=== PATIENT | female | born 1950 | race Caucasian/White ===

== ENCOUNTER 2023-09-23 08:55 | Outpatient (CLI) | payer MEDICARE, SELFPAY | END 2023-09-23 08:56 | disposition home or self-care (01) | LOC: NFLDREF 09-24 10:48 | PROVIDERS: PCP Family Medicine; Referring Provider Family Medicine; Visit Provider Family Medicine | DX: Z00.00 Encounter for general adult medical examination without abnormal findings (principal); R03.0 Elevated blood-pressure reading, without diagnosis of hypertension; Z13.6 Encounter for screening for cardiovascular disorders | CPT/HCPCS: 80048; 80061 ==

== ENCOUNTER 2023-12-18 14:37 | Outpatient (CLI) | payer MEDICARE, SELFPAY ==
--- NOTE | 2023-12-18 15:00 | MM_ITS ---
Patient: MELLISSA GIL Facility:?[facility] R[facility] Patient ID:?[id number] Site Patient [id number] Site :?[id number] Study:?XRay-Breast Bilateral 3D W/CAD-12/18/2023 1:00:44 PM Ordering Physician:SEB Final Report: BILATERAL SCREENING MAMMOGRAM WITH COMPUTER-AIDED DETECTION AND TOMOSYNTHESIS TECHNIQUE: CC and MLO views were obtained. These mammographic images have been obtained using full-field digital technique. These mammographic images were interpreted with the benefit of computer-aided detection. Breast Tomosynthesis was used in this interpretation. COMPARISON FILM: 04/06/20, 02/18/19, 02/06/18, 02/05/17, 01/28/17, 02/18/15. FINDINGS: There are scattered areas of fibroglandular density. IMPRESSION: There is no radiographic evidence for malignancy. ASSESSMENT: BI-RADS Category 2: Benign RECOMMENDATION: Routine screening mammogram in 1 year. A lay language report of this examination will be provided to the patient. Jovan Mayer M.D. Diagnostic Radiologist [email or web address] DSM/sp R& Transcribed: 3:13 p.m. SP/Dictated by: Jovan Mayer MD @ 12/20/2023 1:04:00 PM Signed by:?Jovan Mayer MD @12/20/2023 3:54:34 PM (Electronic Signature)
--- NOTE | 2023-12-18 15:30 | XR_ITS ---
Patient: MELLISSA GIL Facility:?[facility] Patient ID:?[id number] Site Patient ID:?[id number] Site :?[id number] Study:?DEXA-Bone Density SPINE/BOTH HIPS-12/18/2023 3:39:53 PM Ordering Physician:SEB Final Report: DXA BONE MINERAL DENSITY STUDY Current height (in): 63.0. Weight (lb): 135.0. Menopause age: 50. Ethnicity: White. Reason for exam: Osteopenia, asymptomatic menopausal state. 1. Have you had a previous hip or vertebral fracture? No. 2. Have you had any fractures during your adult life which did not result from significant trauma (e.g., auto accident)? No. 3. Did either of your parents have a hip fracture? No. 4. Do you smoke? No. 5. Have you ever taken Glucocorticoids? No. 6. Do you have rheumatoid arthritis? No. 7. Do you have secondary osteoporosis? No. 8. Do you drink 3 or more alcoholic drinks per day? No. 9. Are you being treated for osteoporosis? No. 10. Have you ever taken any of the following medications: Actonel, Evista, Fosamax, Miacalcin, Reclast, Boniva, Forteo, HRT (i.e. estrogen/hormone therapy), Protelos, Prolia, Vitamin D, Calcium, other ? please specify. ANSWER: Yes, vitamin D, calcium. 11. Do you have any of the following medical conditions: Anorexia or bulimia, asthma or emphysema, end stage renal disease, hyperparathyroidism, any seizure disorders, cancer, inflammatory bowel diseases, hysterectomy, other ? please specify. ANSWER: Yes, asthma or emphysema. 12. What was your maximum height (inches)? 63.5. 13. Do you perform weight bearing exercise regularly? Yes. 14. Do you regularly consume dairy products? Yes. 15. Do you drink caffeinated beverages? Yes. 16. At what age did your period start? 11. 17. Are you premenopausal? No. 18. How many full term pregnancies have you had? 2. 19. Have you ever missed your period for more than 6 months in a row (not including or menopause)? No. TECHNIQUE: Bone mineral density study was performed using the AutoAlert. FINDINGS: The results of the study expressed as bone mineral density (BMD) are as follows: Lumbar spine L1 to L4: BMD: 0.904 g/cm2. T-score: -1.3. Z-score: 1.1. Neck Left: BMD: 0.546 g/cm2. T-score: -2.7. Z-score: -0.6 Right: BMD: 0.538 g/cm2. T-score: -2.8. Z-score: -0.7 Total Left: BMD: 0.709 g/cm2. T-score: -1.9. Z-score: -0.1 Right: BMD: 0.671 g/cm2. T-score: -2.2. Z-score: -0.4 IMPRESSION: Osteoporosis. COMPARISON: Compared with scan of 07/27/2021, the bone mineral density has increased by 1.9 percent at the spine and increased by 1.4 percent at the hip. Marlin Morrow M.D. Body/Diagnostic Radiologist [email or web address] JANICE/sindy: D& Transcribed: 11:27 am DW/Dictated by: Marlin Morrow MD @ 12/19/2023 2:36:00 AM Signed by:Yisel Morrow MD @12/19/2023 8:41:48 PM (Electronic Signature)
== END 2023-12-18 14:38 | disposition home or self-care (01) ==
PROVIDERS: PCP Family Medicine; Visit Provider Family Medicine
DX: Z12.31 Encounter for screening mammogram for malignant neoplasm of breast (principal); M85.89 Other specified disorders of bone density and structure, multiple sites; Z78.0 Asymptomatic menopausal state; M81.0 Age-related osteoporosis without current pathological fracture
CPT/HCPCS: 77063; 77067; 77080

== ENCOUNTER 2024-11-04 08:34 | Outpatient (CLI) | payer MEDICARE, SELFPAY | END 2024-11-04 08:35 | disposition home or self-care (01) | LOC: NFLDREF 11-12 23:21 | PROVIDERS: PCP Family Medicine; Referring Provider Family Medicine; Visit Provider Family Medicine | DX: R13.10 Dysphagia, unspecified (principal); E78.00 Pure hypercholesterolemia, unspecified; Z13.228 Encounter for screening for other metabolic disorders | CPT/HCPCS: 80053; 80061 ==

== ENCOUNTER 2025-01-26 10:03 | Outpatient (CLI) | payer MEDICARE, SELFPAY ==
--- NOTE | 2025-01-26 10:15 | CRLHL7_ITS ---
For Patients: As a result of the Century Cures Act, medical imaging exams and procedure reports are released immediately into your electronic medical record. You may view this report before your referring provider. If you have questions, please contact your health care provider. INDICATION: BILATERAL SCREENING MAMMOGRAM, ASYMPTOMATIC 77f COMPARISON: 12/18/23, 04/11/21, 04/06/20 TECHNIQUE: CC and MLO views were obtained. These mammographic images have been obtained using full-field digital technique. These mammographic images were interpreted with the benefit of computer aided detection and tomosynthesis. BREAST COMPOSITION: There are scattered areas of fibroglandular density. FINDINGS: No suspicious findings. ASSESSMENT: BI-RADS 2 Benign RECOMMENDATION: Annual screening mammogram. A lay language report of this examination will be provided to the patient. Dictated by: Jovan Mayer MD @ 02/03/2025 12:41:42 (Electronically Signed)
== END 2025-01-26 10:04 | disposition home or self-care (01) ==
LOC: MAMMO 10:03
PROVIDERS: PCP Family Medicine; Visit Provider Family Medicine
DX: Z12.31 Encounter for screening mammogram for malignant neoplasm of breast (principal)
CPT/HCPCS: 77063; 77067

== ENCOUNTER 2025-02-24 14:22 | Outpatient (CLI) | payer MEDICARE, SELFPAY | END 2025-02-24 14:23 | disposition home or self-care (01) | LOC: NFLDREF 03-03 00:54 | PROVIDERS: PCP Family Medicine; Referring Provider Family Medicine; Visit Provider Family Medicine | DX: E78.00 Pure hypercholesterolemia, unspecified (principal) | CPT/HCPCS: 80061; 80076 ==

== ENCOUNTER 2025-06-22 15:47 | Outpatient (CLI) | payer MEDICARE, SELFPAY | END 2025-06-22 15:48 | disposition home or self-care (01) | PROVIDERS: PCP Family Medicine; Visit Provider Family Medicine | DX: E01.0 Iodine-deficiency related diffuse (endemic) goiter (principal); Z13.21 Encounter for screening for nutritional disorder | CPT/HCPCS: 82607; 84439; 84443 ==

== ENCOUNTER 2025-06-28 14:54 | Outpatient (CLI) | payer MEDICARE, SELFPAY ==
--- NOTE | 2025-06-28 15:00 | CRLHL7_ITS ---
For Patients: As a result of the Cures Act, medical imaging exams and procedure reports are released immediately into your electronic medical record. You may view this report before your referring provider. If you have questions, please contact your health care provider. INDICATION: iodine deficiency related diffuse (endemic) goiter, thyromegaly COMPARISON: none TECHNIQUE: Lynn scale and color Doppler images were acquired of the thyroid gland. FINDINGS: Isthmus measures 4 millimeters. Mostly solid nodule left thyroid lobe measures 2.5 x 2.2 x 2.1 cm, TR 4. Solid and cystic nodule left thyroid lobe measures 3.4 x 1.8 x 3.0 cm, TR 3. Solid and cystic nodule right thyroid lobe measures 1.9 x 1.0 x 1.4 cm, TR 3. Mostly cystic nodule right thyroid lobe measures 2.1 x 1.3 x 1.7 cm, TR 2. Additional mostly cystic nodule right thyroid lobe measures 1.0 x 1.0 x 1.3 cm, TR 2. Solid and cystic nodule right thyroid lobe measures 8 x 6 x 9 millimeters, TR 3. The right lobe measures 5.7 x 2.0 x 2.1 cm and the left lobe measures 5.8 x 2.7 x 2.8 cm in size. The color Doppler images demonstrate normal vascularity. There is no evidence of cervical lymphadenopathy or parathyroid mass. IMPRESSION: 3.4 cm TR 3 nodule left thyroid lobe. 2.5 cm TR 4 nodule left thyroid lobe. FNA recommended. Right-sided nodules can be followed in 1 year. Dictated by Jovan Mayer MD @ 06/29/2025 7:51:27 AM (Electronically Signed)
== END 2025-06-28 14:55 | disposition home or self-care (01) ==
LOC: US 14:55
PROVIDERS: PCP Family Medicine; Visit Provider Family Medicine
DX: E01.0 Iodine-deficiency related diffuse (endemic) goiter (principal)
CPT/HCPCS: 76536

== ENCOUNTER 2025-07-01 08:07 | Outpatient (CLI) | payer MEDICARE, SELFPAY ==
--- NOTE | 2025-07-01 08:15 | CRLHL7_ITS ---
For Patients: As a result of the Cures Act, medical imaging exams and procedure reports are released immediately into your electronic medical record. You may view this report before your referring provider. If you have questions, please contact your health care provider. INDICATION : Left thyroid lobe nodules TECHNIQUE : Ultrasound-guided fine needle aspiration of thyroid nodule x2. COMPARISON : 06/28/2025 FINDINGS : PROCEDURE: Same procedure utilized for each thyroid nodule After the informed consent and time-out, multiple fine needle aspirations were obtained from the thyroid nodule. Fine needle performed. 25 gauge needles were used. Five samples obtained of each nodule. 3.4 cm TR 3 nodule left thyroid lobe. 2.5 cm TR 4 nodule lower pole left thyroid lobe Lidocaine was used for local anesthesia. The preliminary cytology was adequate for interpretation. Real-time imaging was used for guidance and needle placement. Post imaging ultrasound demonstrates no immediate complication. IMPRESSION : Successful fine needle aspiration of 2 thyroid nodules within the left thyroid lobe. Dictated by Jovan Mayer MD @ 07/01/2025 9:37:05 AM (Electronically Signed)
== END 2025-07-01 08:08 | disposition home or self-care (01) ==
LOC: US 08:08
PROVIDERS: PCP Family Medicine; Visit Provider Family Medicine
DX: E04.1 Nontoxic single thyroid nodule (principal)
CPT/HCPCS: 10005; 76942; 88173

== ENCOUNTER 2025-07-01 09:14 | Emergency (ER) | payer MEDICARE, SELFPAY ==
[2025-07-01 09:24] VITALS: BP 128/65; PULSE 92; RESP 18; TEMP 36.9; O2SAT 95; BMI 23.6
--- OUTSIDE RECORDS SUMMARY | 2025-07-01 09:24 | XMS_ITS | Clinical Summary ---
Author Organization [facility] Address [address] [place] [id number] Care Team Providers Care Catalyst Recovery Operator Name Role Phone Ivania Street MD Unavailable Unavailable Cruz Carrillo MD Primary Care Provider [phone] Allergies Active Allergy Reactions Criticality Noted Date Comments Adhesive Tape-Silicones Rash 02/12/2017 tegaderm and bandaids Medications loratadine (CLARITIN) 10 mg tablet Take 1 tablet by mouth once daily. 0 02/12/2017 Active pseudoephedrine (SUDAFED 12 HOUR) 120 mg TbER Take 1 tablet by mouth once daily. 0 02/12/2017 Active cetirizine (ZyrTEC) 10 mg tablet Take 1 Tablet (10 mg) by mouth once daily. 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 Family History Medical History Relation Name Comments Cancer-prostate Other paternal great grandpa pa ssed from it Cancer-breast No Family History Cancer-colon No Family History Cancer-ovarian No Family History Cancer-pancreatic No Family History Melanoma No Family History Relation Name Status Comments Other paternal great grandpa Social History Tobacco Use Types Packs/Day Years Used Date Smoking Tobacco: Never Smokeless Tobacco: Never Alcohol Use Standard Drinks/Week Comments Yes 0 (1 standard drink = 0.6 oz pur e alcohol) Social Connections Answer Date Recorded Frequency of Communication with Friends and Fami ly Not on file 10/14/2021 Financial Resource Strain Answer Date R ecorded Difficulty of Paying Living Expenses Not on file 10/14/2021 Difficulty of Paying Living Expenses Not on file 10/14/2021 Comments No Sex and Gender Information Value Date Recorded Sex Assigned at Not on file Legal Sex Female 11:23 AM CDT Gender Identity Not on file Sexual Orientation Not on file Obstetrics History Last Filed Vital Signs Vital Sign Reading Time Taken Comments Blood Pressure 140/64 04/23/2022 1:04 PM CDT Pulse 72 04/23/2022 1:04 PM CDT Temperature 36.6 C (97.8 F) 04/23/2022 1:04 PM CDT Respiratory Rate 16 04/23/2022 1:04 PM CDT Oxygen Saturation 98% 03/08/2017 4:29 PM CDT Inhaled Oxygen Concentration - - Weight 62.8 kg (138 lb 8 oz) 04/23/2022 1:04 PM CDT Height 161.3 cm (5' 3.5) 04/23/2022 1:04 PM CDT Body Mass Index 24.15 04/23/2022 1:04 PM CDT Plan of Treatment Health Maintenance Due Date Last Done Comments Tetanus booster 01/25/1959 Depression screening for age 12+ 1960 Hepatitis C screening for age 18-79 01/25/1966 Pneumococcal series for age 50+ (1 of 1 - PCV) 01/25/1998 Zoster (shingles) series for age 50+ (1 of 2) 01/25/1998 DEXA/DXA scan for age 65+ 01/25/2013 Medicare Wellness for age 65+ 01/25/2013 RSV vaccine for adults or (1 - 1-dose 75+ series) 01/25/2023 BMI (ht and wt on same day) for age 18+ 04/23/2023 04/23/2022, 04/11/2021, 04/06/2020, Additional history exists COVID-19 vaccine series (2024- season) 2025 09/12/2023, 07/30/2022, 02/02/2022, Additional history exists Influenza Vaccine (#1) 2025 Hepatitis B series for 19+ Aged Out N o longer eligible based on patient's age to complete this topic Insurance [employer] MEDICARE ADVANTAGE MR MEDICARE PART A HB ONLY Advance Directives * Full Code (Latest Code Status on File) Date Activated Date Inactivated Comments 03/08/2017 3:19 PM 03/08/2017 7:08 PM * Full Code Date Activated Date Inactivated Comments 03/08/2017 11:05 AM 03/08/2017 3:19 PM Care Teams Catalyst Recovery Operator Relationship Specialty Start Date End Date Cruz Carrillo MD [address] [place] [address] PCP - General Family Practice 04/17/[address] MD Surgery - General 02/11/17
--- NOTE | 2025-07-01 10:06 | CRLHL7_ITS ---
For Patients: As a result of the Century Cures Act, medical imaging exams and procedure reports are released immediately into your electronic medical record. You may view this report before your referring provider. If you have questions, please contact your health care provider. INDICATION: Head injury. Fell. TECHNIQUE: Scanning of the head was performed without IV contrast material. Coronal and sagittal reconstructions were obtained. COMPARISON: Today`s facial bone CT FINDINGS: No acute hemorrhage or positive mass effect is demonstrated. No calvarial or obvious facial fracture is identified. The visualized paranasal and mastoid sinuses are clear. The ventricles and other subarachnoid spaces are within normal limits for the patient`s age. There is nonspecific decreased attenuation in the cerebral white matter which is most likely due to aging/chronic microvascular ischemic disease. IMPRESSION: 1. Negative for acute traumatic abnormality. 2. Nonspecific cerebral white matter disease which is most likely due to aging/chronic microvascular ischemia. Please note that all CT scans at this facility use dose modulation, iterative reconstruction, and/or weight-based dosing when appropriate to reduce radiation dose to as low as reasonably achievable. Dictated by Jg Massey MD @ 07/01/2025 11:29:30 AM (Electronically Signed)
--- NOTE | 2025-07-01 10:06 | CRLHL7_ITS ---
For Patients: As a result of the Century Cures Act, medical imaging exams and procedure reports are released immediately into your electronic medical record. You may view this report before your referring provider. If you have questions, please contact your health care provider. INDICATION: Left periorbital bruising post fall TECHNIQUE: Volumetric helical scanning of the facial bones was performed without contrast material. Sagittal and coronal reconstructions were also obtained. COMPARISON: Today`s head CT FINDINGS: No fracture is evident. The paranasal sinuses and nasal fossa are clear. The nasal septum is midline. IMPRESSION: Negative CT of the facial bones. Please note that all CT scans at this facility use dose modulation, iterative reconstruction, and/or weight-based dosing when appropriate to reduce radiation dose to as low as reasonably achievable. Dictated by Jg Massey MD @ 07/01/2025 11:20:59 AM (Electronically Signed)
--- NOTE | 2025-07-01 10:06 | CRLHL7_ITS ---
For Patients: As a result of the Century Cures Act, medical imaging exams and procedure reports are released immediately into your electronic medical record. You may view this report before your referring provider. If you have questions, please contact your health care provider. INDICATION: Neck injury. Fell. TECHNIQUE: Volumetric helical scanning of the cervical spine was performed without contrast material. Sagittal and coronal reconstructions were also obtained. COMPARISON: None FINDINGS: No fracture, traumatic subluxation or prevertebral soft tissue swelling is demonstrated. Multilevel spondylosis is demonstrated. This includes a degenerative 3 mm C4 anterior subluxation. No curvature abnormality or other abnormality is evident. Incidental note is made of a multinodular goiter, including a left lobe nodule measuring at least 2.8 cm in diameter. IMPRESSION: 1. Negative for acute traumatic abnormality. 2. Multilevel spondylosis. 3. Multinodular goiter, including a left lobe nodule measuring at least 2.8 cm in diameter. Consider thyroid ultrasound, if not performed previously. Please note that all CT scans at this facility use dose modulation, iterative reconstruction, and/or weight-based dosing when appropriate to reduce radiation dose to as low as reasonably achievable. Dictated by Jg Massey MD @ 07/01/2025 11:33:52 AM (Electronically Signed)
--- NOTE | 2025-07-01 11:26 | ED.FALL ---
HPI - Fall General Date Seen: 07/01/25 Chief Complaint: Fall/Minor Trauma Stated Complaint: left eye injury Time Seen by Provider: 07/01/25 09:37 Source: patient Mode of arrival: ambulatory Limitations: no limitations History of Present Illness HPI Narrative: Patient is a 75-year-old female presenting to the emergency department after a fall. She states yesterday she was walking when she tripped and fell and hit the right side of her face. She was feeling all right after that had some small bruising but on her drive home later that night she noticed a flicker of late on the lateral aspect of her left vision. She has not noticed that today. She woke up today that would noticed more bruising around her eye. Denies any vision changes currently. Does states she needs cataract surgery for her left eye so is unsure if the blurry vision she has is any different than her baseline. Denies any pain with movement of her eye. Denies any pain behind her eye. No other concerns noted. Not on blood thinners. She does have some mild anterior left neck pain but she states that is because she came to the emergency department straight from a thyroid biopsy. Related Data Home Medications ?Medication ?Instructions ?Recorded ?Confirmed cetirizine 10 mg tablet 10 mg PO DAILY 07/24/22 06/22/25 cholecalciferol (vitamin D3) 25 1,000 unit PO DAILY 07/24/22 06/22/25 mcg (1,000 unit) tablet pseudoephedrine HCl 30 mg tablet 30 mg PO .Daily as needed PRN 07/24/22 06/22/25 calcium-vitamin C-vit D2-min tablet tab PO DAILY 06/22/25 06/22/25 magnesium glycinate 100 mg (as 200 mg PO QDAY 06/22/25 06/22/25 glycinate) tablet Previous Rx's ?Medication ?Instructions ?Recorded rosuvastatin 10 mg tablet 10 mg PO DAILY #90 tabs 02/25/25 Allergies Allergy/AdvReac Type Severity Reaction Status Date / Time No Known Drug Allergies Allergy Verified 07/01/25 09:30 Review of Systems Status of ROS: Reports: 10 or more systems reviewed and unremarkable except as noted in History and below [facility] Medical History Hypercholesterolemia ?E78.00 - Pure hypercholesterolemia, unspecified (ICD-10) Osteoporosis ?M81.0 - Age-related osteoporosis without current pathological fracture (ICD-10) History of urinary tract infection ?Z87.440 - Personal history of urinary (tract) infections (ICD-10) Social History What is your current living situation?: I presently have a place to live Problems where you live: no known problems In the past 12 months, utilities in danger of being shut off: no In past 12 months, lack of transportation kept you from medical appts, meetings, work, or getting things needed for daily living: no In the past 12 mos, have been you worried that your food would run out before you had money to buy more?: never true In the past 12 mos, the food you bought just didn't last and you didn't have money to buy more?: never true Smoking Status: Never smoker How often do you have a drink containing alcohol: never How often do you have six or more drinks on one occasion: Never AUDIT-C Alcohol total score: 0 Non-prescribed substance use: denies use service: No Exam Narrative: Exam Narrative: Const: Well-nourished, Well-developed, in no distress Eyes: PERRL, no conjunctival injection, and symmetrical lids, normal extraocular movements. HENT: Atraumatic external nose and ears. Moist mucous membranes. Bruising around left eye Neck: Symmetric, trachea midline, No thyromegaly. No midline cervical tenderness MSK:Extremities w/o deformity, Normal Active ROM Skin: Warm, Dry. No rashes or lesions. Neuro: Normal Muscle tone, No focal neurological deficits. Psych: Awake, Alert, & Oriented x3. Appropriate mood and affect. Const: Vital Signs, click to edit/add: Vital Signs - 24 hr 07/01/25 09:24 Temperature 98.4 F Pulse Rate [Left P ulse Oximeter] 92 Respiratory Rate 18 Blood Pressure [Le ft Upper Arm] 128/65 Pulse Oximetry 95 Oxygen Delivery Me thod Room Air Course Vital Signs Vital signs: Initial Vital Signs Temperature 98.4 F 07/01/25 09:24 Temperature Source Temporal Artery Scan 07/01/25 09:24 Pulse Rate 92 07/01/25 09:24 Respiratory Rate 18 07/01/25 09:24 Blood Pressure 128/65 07/01/25 09:24 Blood Pressure Mean 86 07/01/25 09:24 Blood Pressure Position Sitting 07/01/25 09:24 Pulse Oximetry 95 07/01/25 09:24 Oxygen Delivery Method Room Air 07/01/25 09:24 Vital Signs Temperature 98.4 F 07/01/25 09:24 Pulse Rate 92 07/01/25 09:24 Respiratory Rate 18 07/01/25 09:24 Blood Pressure 128/65 07/01/25 09:24 Pulse Oximetry 95 07/01/25 09:24 Oxygen Delivery Method Room Air 07/01/25 09:24 Temperature 98.4 F 07/01/25 09:24 Pulse Rate 92 07/01/25 09:24 Respiratory Rate 18 07/01/25 09:24 Blood Pressure 128/65 07/01/25 09:24 Pulse Oximetry 95 07/01/25 09:24 Oxygen Delivery Method Room Air 07/01/25 09:24 MDM - Fall MDM Narrative Medical decision making narrative: Patient is a 75-year-old female presenting to the emergency department after a fall. Will do a CT scan of her head, cervical spine, facial bones look for any abnormalities. Do not believe further workup is necessary for vision as she does not think her vision in her left eyes any worse than her baseline. Is not having any pain behind her eye. Images returned reviewed by myself and the radiologist showed no acute concerning abnormalities. There is a nodule seen on the thyroid but she has already had the biopsy. At this time I do believe she is safe for discharge. She is agreeable to this plan Imaging Data CT scan head: Attestation: I have reviewed the pertinent imaging results. Radiologist's impression: 1. Negative for acute traumatic abnormality. 2. Nonspecific cerebral white matter disease which is most likely due to aging/chronic microvascular ischemia. Please note that all CT scans at this facility use dose modulation, iterative reconstruction, and/or weight-based dosing when appropriate to reduce radiation dose to as low as reasonably achievable. Dictated by Jg Massey MD @ 07/01/2025 11:29:[address] scan cervical spine: Attestation: I have reviewed the pertinent imaging results. Radiologist's impression: 1. Negative for acute traumatic abnormality. 2. Multilevel spondylosis. 3. Multinodular goiter, including a left lobe nodule measuring at least 2.8 cm in diameter. Consider thyroid ultrasound, if not performed previously. Please note that all CT scans at this facility use dose modulation, iterative reconstruction, and/or weight-based dosing when appropriate to reduce radiation dose to as low as reasonably achievable. Dictated by Jg Massey MD @ 07/01/2025 11:33:[address] scan facial bones: Attestation: I have reviewed the pertinent imaging results. Radiologist's impression: Negative CT of the facial bones. Please note that all CT scans at this facility use dose modulation, iterative reconstruction, and/or weight-based dosing when appropriate to reduce radiation dose to as low as reasonably achievable. Dictated by Jg Massey MD @ 07/01/2025 11:20:59 AM Discharge Plan Discharge Clinical Impression: Contusion Qualifiers: Encounter type: initial encounter Contusion area: head Contusion of head detail: orbital tissues Laterality: left Qualified Code(s): S05.12XA - Contusion of eyeball and orbital tissues, left eye, initial encounter Patient Disposition: Home, Self-Care Condition: Stable Instructions: Facial Contusion (ED) Additional Instructions: Take Tylenol for pain. Return to emergency department for new or worsening symptoms Prescriptions: No Action cholecalciferol (vitamin D3) 25 mcg (1,000 unit) tablet 1,000 unit PO DAILY pseudoephedrine HCl 30 mg tablet 30 mg PO .Daily as needed PRN cetirizine 10 mg tablet 10 mg PO DAILY calcium-vitamin C-vit D2-min Tablet PO DAILY magnesium glycinate 100 mg tablet 200 mg PO QDAY rosuvastatin 10 mg tablet 10 mg PO DAILY Qty: 90 3RF Follow Up/Referrals: Cruz Carrillo MD [Primary Care Provider, Family Practice] Stand Alone Forms: [facility] Info Instructions
== END 2025-07-01 12:01 | disposition home or self-care (01) ==
PROVIDERS: Emergency Provider Student in an Organized Health Care Education/Training Program; PCP Family Medicine
DX: S05.12XA Contusion of eyeball and orbital tissues, left eye, initial encounter (principal); W01.0XXA Fall on same level from slipping, tripping and stumbling without subsequent striking against object, initial encounter; E04.1 Nontoxic single thyroid nodule
CPT/HCPCS: 70450; 70486; 72125; 99283; 99285